=== PATIENT | female | born 1965 | race Caucasian/White ===

== ENCOUNTER 2022-04-10 10:26 | Emergency (ER) | payer OTHER, SELFPAY ==
[2022-04-10 10:42] VITALS: BP 146/85; PULSE 118; RESP 24; TEMP 36.3; O2SAT 95; BMI 53.4
--- NOTE | 2022-04-10 10:56 | CRLHL7_ITS ---
For Patients: As a result of the Century Cures Act, medical imaging exams and procedure reports are released immediately into your electronic medical record. You may view this report before your referring provider. If you have questions, please contact your health care provider. Indication: Fall and pain. Technique: Left ankle, 3 views. Comparison: None. Findings: Bones: Mildly displaced fracture of the lateral malleolus. Sclerotic focus in the distal tibia is most likely a bone island. Joint spaces: Unremarkable. Soft tissues: Notable soft tissue swelling, more prominent along the lateral aspect of the ankle. Impression: Lateral malleolar fracture with associated soft tissue swelling. Dictated by Akira Licona MD @ 04/10/2022 12:31:21 PM (Electronically Signed)
[2022-04-10] MEDS: HYDROCODONE-ACETAMIN 5-325 MG 1 TAB 2 TAB PO (12:28)
--- NOTE | 2022-04-10 13:21 | PC.NURSE ---
pt was hesitant to take 2 pain pills r/t not wanting to get nauseated so did take one, pt now took the second pill, unable to tolerate cam walker application, Dr Dobbs aware
--- NOTE | 2022-04-10 13:30 | ED.LOWEXIN ---
HPI - Extremity Injury (Lower) General Chief Complaint: Extremity Pain/Injury, Lower Stated Complaint: Fell, left foot injury Time Seen by Provider: 04/10/22 11:28 History of Present Illness HPI Narrative: This 57-year-old female comes in with an injury to her left ankle. She was outside this morning and slipped on ice. She fell injuring her left ankle. She has pain and swelling over the lateral malleolus and over the dorsal aspect of her foot. She does not report any other injury. She has not been able to bear weight since this injury. 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 Related Data Home Medications Medication Instructions Recorded Confirmed cetirizine 10 mg tablet (24Hour 10 mg PO DAILY PRN 04/10/22 04/10/22 Allergy) famotidine 10 mg tablet (Pepcid AC) 10 mg PO TID 04/10/22 04/10/22 Previous Rx's Medication Instructions Recorded Cam Walker #1 ea 04/10/22 hydrocodone 5 mg-acetaminophen 325 1 tab PO Q4-6H PRN pain #20 tabs 04/10/22 mg tablet Allergies Allergy/AdvReac Type Severity Reaction Status Date / Time No Known Drug Allergies Allergy Verified 04/10/22 10:46 Review of Systems Status of ROS: Reports: 10 or more systems reviewed and unremarkable except as noted in History and below Narrative: Constitutional: No fevers, no weight gain or loss. Eyes: No discharge. No vision changes. HENT: No congestion, no sore throat, no ear pain. Cardiovascular: No chest pain, no palpitations. Respiratory: No shortness of breath, no wheezes, no cough. Gastrointestinal: No abdominal pain, no vomiting, no diarrhea. Genitourinary: No dysuria, no hematuria. Musculoskeletal: Left ankle injury as described above. Skin: No rashes, no pruritis. Neurological: No dizziness, weakness, sensory change, speech change. Endo/Heme/Allergies: No bruising or bleeding. No polydipsia. Pysch: no suicidality, no anxiety, no insomnia. All other systems reviewed and are negative. Exam Narrative: Exam Narrative: Constitutional: Well-developed, well-nourished, no acute distress. HEENT: Normocephalic, atraumatic. Neck: Normal range of motion. Nontender. Supple. Heart: Intact distal pulses. Lungs: No chest discomfort. No wheezes, rhonchi, or rales. Abdomen: Nontender. Back: Normal range of motion. Extremities: Swelling over the left lateral malleolus and over the dorsal aspect of the forefoot. She has decreased range of motion due to pain. Skin: Intact. No rash. Warm. No erythema or pallor. Neurologic: No altered sensation. No weakness. Alert and oriented. Psychiatric: No suicidality. No anxiety or depression. No insomnia. Nursing notes and vitals signs are reviewed. Const: Vital Signs, click to edit/add: Vital Signs - 24 hr 04/10/22 10:42 Temperature 97.3 F L Pulse Rate [Pulse Oximeter] 118 H Respiratory Rate 24 Blood Pressure [Ri ght Upper Arm] 146/85 H Pulse Oximetry 95 Oxygen Delivery Me thod Room Air Course Vital Signs Vital signs: Initial Vital Signs Temperature 97.3 F L 04/10/22 10:42 Temperature Source Temporal Artery Scan 04/10/22 10:42 Pulse Rate 118 H 04/10/22 10:42 Respiratory Rate 24 04/10/22 10:42 Blood Pressure 146/85 H 04/10/22 10:42 Blood Pressure Mean 105 04/10/22 10:42 Blood Pressure Position Sitting 04/10/22 10:42 Pulse Oximetry 95 04/10/22 10:42 Oxygen Delivery Method 04/10/22 10:42 Vital Signs Temperature 97.3 F L 04/10/22 10:42 Pulse Rate 118 H 04/10/22 10:42 Respiratory Rate 24 04/10/22 10:42 Blood Pressure 146/85 H 04/10/22 10:42 Pulse Oximetry 95 04/10/22 10:42 Oxygen Delivery Method 04/10/22 10:42 Temperature 97.3 F L 04/10/22 10:42 Pulse Rate 118 H 04/10/22 10:42 Respiratory Rate 24 04/10/22 10:42 Blood Pressure 146/85 H 04/10/22 10:42 Pulse Oximetry 95 04/10/22 10:42 Oxygen Delivery Method 04/10/22 10:42 MDM - Extremity Injury (Lower) MDM Narrative Medical decision making narrative: X-ray images of the left lower extremity show a fracture at the distal fibula of the left ankle. The ankle mortise is intact. There is no other evidence of fracture or malalignment. She reports significant pain in the dorsal aspect of her foot and there is some swelling in this area. I reviewed the x-rays again and see no sign of bony injury here. The patient prefers to follow-up with her orthopedic clinician in the [place] area. An attempt was made to put a Cam walker boot on but this was too uncomfortable for her. She states that she has 1 of these at home anyway. I did then place a posterior splint of the lower extremity using Orth[employer] Glass material. The patient states that she does have crutches at home. She received 2 tablets of [place] here and I did provide a prescription for the same. Discharge Plan Discharge Clinical Impression: Ankle fracture Patient Disposition: Home, Self-Care Condition: Unchanged Additional Instructions: Wear splint and use crutches. Follow-up with orthopedic clinic this coming week. Use medicine as needed and indicated. Prescriptions: New (DME) Cam Walker Misc See Rx Instructions .ROUTE .MEDSUPPLY Qty: 1 0RF Rx Instructions: As directed hydrocodone-acetaminophen 5-325 mg tablet 1 tab PO Q4-6H PRN (Reason: pain) Qty: 20 0RF No Action cetirizine [24Hour Allergy] 10 mg tablet 10 mg PO DAILY PRN famotidine [Pepcid AC] 10 mg tablet 10 mg PO TID Follow Up/Referrals: Yue Catalan MD [Staff Physician] - Stand Alone Forms: [employer] Info Instructions
== END 2022-04-10 13:59 | disposition home or self-care (01) ==
PROVIDERS: Emergency Provider Emergency Medicine Emergency Medical Services
DX: S82.892A Other fracture of left lower leg, initial encounter for closed fracture (principal); W00.9XXA Unspecified fall due to ice and snow, initial encounter
CPT/HCPCS: 29515; 73610; 99284; A9270